=== PATIENT | female | born 1970 | race Caucasian/White ===

== ENCOUNTER → 2017-01-14 | Outpatient (CLI) | payer BC ==
--- NOTE | 2017-01-21 18:23 | ECHO ---
EXAM DATE: 01/14/17 PATIENT'S AGE: 46 Height: 67.0 in. Weight: 142.0 lbs. BSA: 1.75 m2 Heart Rate: 60 INDICATIONS: Palpitations STUDY INFORMATION: Complete study received on 01/14/2017. CELL LINER COMMENTS: LV systolic function deferred to physician observation. SUMMARY: 1. Left ventricular ejection fraction, by visual estimation, is 60% to 65%. 2. Normal pattern of LV diastolic filling. 3. Normal right ventricular systolic function. 4. Aortic valve is structurally normal and tricuspid. 5. Trace aortic valve regurgitation. 6. Trace mitral valve regurgitation. 7. Trace tricuspid valve regurgitation. 8. No regional wall motion abnormalities. PHYSICIAN INTERPRETATION: LEFT VENTRICLE: The left ventricular internal cavity size is normal. LV septal wall thickness is normal. LV posterior wall thickness is normal. LV systolic function is normal. Left ventricular ejection fraction by visual estimation is 60% to 65%. LEFT VENTRICULAR DIASTOLOGY: Spectral Doppler shows normal pattern of LV diastolic filling. LEFT VENTRICULAR REGIONAL WALL MOTION: No regional wall motion abnormalities. RIGHT VENTRICLE: The right ventricular size is normal. Right ventricular systolic function is normal. LEFT ATRIUM: The left atrium is normal in size. RIGHT ATRIUM: The right atrium is normal in size. AORTIC VALVE: The aortic valve is structurally normal and tricuspid. Trace aortic valve regurgitation is visualized. No aortic valve stenosis is visualized with a measured peak systolic flow velocity of 1.30 m/s. MITRAL VALVE: The mitral valve is normal in structure. Mitral leaflet mobility is normal. Trace mitral valve regurgitation is visualized. TRICUSPID VALVE: The tricuspid valve is normal in structure. Trace tricuspid valve regurgitation is visualized. PULMONIC VALVE: The pulmonic valve is probably normal in structure. Trace pulmonic valve regurgitant is visualized. PULMONARY ARTERY: The pulmonary artery is not well seen. AORTA: The aortic root and ascending aorta is/are normal. VENOUS: The inferior vena cava is normal sized. SHUNTS: Interatrial septum appears intact with no evidence of intracardiac shunting by spectral or color Doppler. PERICARDIUM: There is no evidence of pericardial effusion. ----- 2D and M-MODE Measurements (normal ranges within parentheses): RIGHT VENTRICLE: NORMAL RVd (2D): 2.10 cm LEFT VENTRICLE NORMAL LV d (2D): 4.0 cm (3.8-5.2) LV s (2D): 2.9 cm (2.2-3.5) IVSd (2D): 0.8 cm (0.6-0.9) LVPWd (2D): 0.8 cm (0.6-0.9) MV EPSS: 3.0 mm (</= 5) LV Mass Index (2D): 53 g/m2 (43-95) Relative Wall Thickness: 0.40 </= 0.42 AORTA/LEFT ATRIUM: NORMAL Aortic Root/Sinus (2D): 2.64 cm Left Atrium (2D): 3.39 cm (2.7-4.0) LV DIASTOLIC FUNCTION: MV E Vmax: 87.9 cm/s MV A Vmax: 59.4 cm/s MV E/A: 1.5 Medial MV e': 10.1 cm/s Medial MV E/e': 8.7 Lateral MV e': 12.0 cm/s Lateral MV E/e': 7.3 MV Dec Time: 225.0 msec Average E/e': 8.01 AORTIC VALVE: AoV Vmax: 1.30 m/s AoV Peak P.8 mmHg LVOT Vmax: 1.00 m/s LVOT Peak P.0 mmHg TRICUSPID VALVE AND PA/RV SYSTOLIC PRESSURE: TR Vmax: 2.14 m/s TR pk grad: 18 mmHg PULMONIC VALVE: PV Vmax: 0.66 m/s PV Max P.7 mmHg Electronically signed by: Tigre Srinivasan MD Signature Date/Time: 01/14/2017 at [address] [facility] -- SHWETA Alvarez [phone] - FAX: [phone] Report Signed by Proxy SHANELLE
== END ==
LOC: MW.US 12:45
PROVIDERS: ATTEND Internal Medicine
DX: R00.2 Palpitations (principal); I08.3 Combined rheumatic disorders of mitral, aortic and tricuspid valves
CPT/HCPCS: 93306

== ENCOUNTER → 2017-01-21 | Outpatient (CLI) | payer BC | LOC: MW.RT 10:37 | DX: R00.2 Palpitations (principal) | CPT/HCPCS: 93270 ==

== ENCOUNTER 2021-10-18 04:12 | Emergency (ER) | payer BC ==
--- NOTE | 2021-10-18 04:23 | EDM.PDOC ---
ED HPI GENERAL MEDICAL PROBLEM - General Stated Complaint: SOB COVID POS Time Seen by Provider: 10/18/21 04:14 - History of Present Illness INITIAL COMMENTS - FREE TEXT/NARRATIVE: History of present illness: [] Patient feels short of breath. She has a cough. She has diffuse body aches. She has fatigue. She has no appetite. Tonight she starting to be nauseated. She feels extremely weak tonight. Symptom onset was 10 October 2021 after she got a booster tetanus shot. She had muscle aches fever and fatigue. She is gradually gotten worse since. On 13 October 2021 she had a test was diagnosed with COVID-19. Other than COVID-19 she has no other risk for thromboembolic disease. She is not recently immobilized or operated on has no recent casting no recent long trips. She did have a varicose vein after multiple pregnancies but no DVT and no family history of DVT. Review of systems: As per history of present illness and below otherwise all systems reviewed and negative. Past medical history: As per history of present illness and as reviewed below otherwise noncontributory. Surgical history: As per history of present illness and as reviewed below otherwise noncontributory. Social history: No reported history of drug or alcohol abuse. Family history: As per history of present illness and as reviewed below otherwise noncontributory. Physical exam: Constitutional - well developed, well-nourished and in no acute distress HEENT - normocephalic, no evidence of trauma - external nose and mouth normal - no mass in neck and no JVD - mucosae moist EYES - full EOM, PERRL, no icterus - no evidence of inflammation, injection, or drainage Respiratory - no respiratory distress, equal bilateral expansion, lungs scattered light crackles in both bases slightly diminished in the apices. Cardiovascular - Regular Rhythm with S1 and S2 appreciated and no murmur, gallop or rub. GI - abdomen soft without distension or organomegaly - normal bowel sounds - no guard or rebound Musculoskeletal no gross deformity of long bones or joints - no tenderness, swelling or edema Neurologic - Alert and oriented times four - CN II-XII grossly intact - motor sensory and coordination symmetrically normal Psychiatric - appropriate mood and affect with normal thought content Hematologic - No petechiae or purpura - mucosa appropriate color and sclera not pale - normal nail bed color and refill Integument - no rash or evidence of trauma - normal turgor Diagnostics: [] Therapeutics: [] Impression: [] Plan: [] Definitive disposition and diagnosis as appropriate pending reevaluation and review of above. Generalized Pain Score (Numeric/FACES): 6 - Related Data Allergies Allergy/AdvReac Type Severity Reaction Status Date / Time No Known Allergies Allergy Verified 10/18/21 04:35 Home Meds: Home Meds . [No Known Home Meds] 10/18/21 [History] ED ROS GENERAL - Review of Systems Review Of Systems: Comprehensive ROS is negative, except as noted in HPI. ED EXAM, GENERAL - Physical Exam Exam: See Below Free Text/Narrative:: My physical exam is in the HPI #1 Interpretation EKG Interpretation Comments: EKG shows sinus rhythm heart rate 86 CA interval 144. QT duration is 438 and axis of 64. QRS normal ST and T are normal. No prior for comparison. Impression normal Course - Vital Signs Last Recorded V/S: Last Vital Signs Temp 36.7 C 10/18/21 06:00 Pulse 87 10/18/21 06:00 Resp 20 10/18/21 06:00 BP 135/81 10/18/21 06:00 Pulse Ox 96 10/18/21 06:00 - Orders/Labs/Meds Orders: Active Orders 24 hr Category Date Time Status Sodium Chloride 0.9% [Saline Flush] Med 10/18/21 04:37 Active 10 ml FLUSH ASDIRECTED PRN Sodium Chloride 0.9% [Saline Flush] Med 10/18/21 04:37 Active 2.5 ml FLUSH ASDIRECTED PRN Saline Lock Insert [OM.PC] Stat Oth 10/18/21 04:37 Ordered Medication Orders Sodium Chloride (Sodium Chloride 0.9% 10 Ml Syringe) 10 ml FLUSH ASDIRECTED PRN PRN Reason: Keep Vein Open Last Admin: 10/18/21 04:54 Dose: 10 ml Documented by: MEREDITH Sodium Chloride (Sodium Chloride 0.9% 2.5 Ml Syringe) 2.5 ml FLUSH ASDIRECTED PRN PRN Reason: Keep Vein Open Last Admin: 10/18/21 04:54 Dose: 2.5 ml Documented by: MEREDITH Labs: Laboratory Tests 10/18/21 10/18/21 10/18/21 Range/Units 04:25 04:25 04:25 WBC 2.69 L (4.0-11.0) K/uL RBC 4.82 (4.30-5.90) M/uL Hgb 13.5 (12.0-16.0) g/dL Hct 40.0 (36.0-46.0) % MCV 83.0 (80.0-98.0) fL MCH 28.0 (27.0-32.0) pg MCHC 33.8 (31.0-37.0) g/dL RDW Std Deviation 40.5 (28.0-62.0) fl RDW Coeff of Tom 13 (11.0-15.0) % Plt Count 81 L (150-400) K/uL MPV 10.30 (7.40-12.00) fL Neut % (Auto) 64.7 (48.0-80.0) % Lymph % (Auto) 28.6 (16.0-40.0) % [place] % (Auto) 6.3 (0.0-15.0) % Eos % (Auto) 0.0 (0.0-7.0) % Baso % (Auto) 0.4 (0.0-1.5) % Neut # (Auto) 1.7 (1.4-5.7) K/uL Lymph # (Auto) 0.8 (0.6-2.4) K/uL [place] # (Auto) 0.2 (0.0-0.8) K/uL Eos # (Auto) 0.0 (0.0-0.7) K/uL Baso # (Auto) 0.0 (0.0-0.1) K/uL Nucleated RBC % 0.0 /100WBC Nucleated RBCs # 0 K/uL D-Dimer, Quantitative 0.81 H (0.0-0.50) mg/L FEU Sodium 136 (136-145) mmol/L Potassium 3.8 (3.5-5.1) mmol/L Chloride 101 (98-107) mmol/L Carbon Dioxide 27.5 (21.0-32.0) mmol/L BUN 10 (7.0-18.0) mg/dL Creatinine 0.9 (0.6-1.0) mg/dL Est Cr Clr Drug Dosing 72.72 mL/min Estimated GFR (MDRD) > 60.0 ml/min Glucose 122 H (74-106) mg/dL Calcium 8.7 (8.5-10.1) mg/dL Total Bilirubin 0.3 (0.2-1.0) mg/dL AST 68 H (15-37) IU/L ALT 59 (14-63) IU/L Alkaline Phosphatase 60 (46-116) U/L Troponin I < 0.050 (0.000-0.056) ng/mL Total Protein 7.6 (6.4-8.2) g/dL Albumin 3.2 L (3.4-5.0) g/dL Globulin 4.4 H (2.6-4.0) g/dL Albumin/Globulin Ratio 0.7 L (0.9-1.6) HCG, Qual (NEG) 10/18/21 Range/Units 04:25 WBC (4.0-11.0) K/uL RBC (4.30-5.90) M/uL Hgb (12.0-16.0) g/dL Hct (36.0-46.0) % MCV (80.0-98.0) fL MCH (27.0-32.0) pg MCHC (31.0-37.0) g/dL RDW Std Deviation (28.0-62.0) fl RDW Coeff of Tom (11.0-15.0) % Plt Count (150-400) K/uL MPV (7.40-12.00) fL Neut % (Auto) (48.0-80.0) % Lymph % (Auto) (16.0-40.0) % [place] % (Auto) (0.0-15.0) % Eos % (Auto) (0.0-7.0) % Baso % (Auto) (0.0-1.5) % Neut # (Auto) (1.4-5.7) K/uL Lymph # (Auto) (0.6-2.4) K/uL [place] # (Auto) (0.0-0.8) K/uL Eos # (Auto) (0.0-0.7) K/uL Baso # (Auto) (0.0-0.1) K/uL Nucleated RBC % /100WBC Nucleated RBCs # K/uL D-Dimer, Quantitative (0.0-0.50) mg/L FEU Sodium (136-145) mmol/L Potassium (3.5-5.1) mmol/L Chloride (98-107) mmol/L Carbon Dioxide (21.0-32.0) mmol/L BUN (7.0-18.0) mg/dL Creatinine (0.6-1.0) mg/dL Est Cr Clr Drug Dosing mL/min Estimated GFR (MDRD) ml/min Glucose (74-106) mg/dL Calcium (8.5-10.1) mg/dL Total Bilirubin (0.2-1.0) mg/dL AST (15-37) IU/L ALT (14-63) IU/L Alkaline Phosphatase (46-116) U/L Troponin I (0.000-0.056) ng/mL Total Protein (6.4-8.2) g/dL Albumin (3.4-5.0) g/dL Globulin (2.6-4.0) g/dL Albumin/Globulin Ratio (0.9-1.6) HCG, Qual NEGATIVE (NEG) Meds: Medications Generic Name Dose Route Start Last Admin Trade Name Freq PRN Reason Stop Dose Admin Sodium Chloride 10 ml 10/18/21 04:37 10/18/21 04:54 Sodium Chloride 0.9% 10 Ml Syringe FLUSH 10 ml ASDIRECTED PRN Administration Keep Vein Open Sodium Chloride 2.5 ml 10/18/21 04:37 10/18/21 04:54 Sodium Chloride 0.9% 2.5 Ml Syringe FLUSH 2.5 ml ASDIRECTED PRN Administration Keep Vein Open Discontinued Medications Generic Name Dose Route Start Last Admin Trade Name Freq PRN Reason Stop Dose Admin Sodium Chloride 1,000 mls @ 1,000 mls/hr 10/18/21 04:38 10/18/21 04:52 Normal Saline IV 10/18/21 05:37 1,000 mls/hr .Bolus ONE Administration Iopamidol 75 ml 10/18/21 05:54 10/18/21 05:54 Iopamidol 755 Mg/Ml 500 Ml Multipack Bottle IVPUSH 10/18/21 05:55 75 ml ONETIME STA Administration Ondansetron HCl 4 mg 10/18/21 04:37 10/18/21 04:52 Ondansetron 4 Mg/2 Ml Sdv IVPUSH 10/18/21 04:38 4 mg ONETIME ONE Administration Departure - Departure Time of Disposition: 06:46 Disposition: Home, Self-Care 01 Condition: Good Clinical Impression: Dyspnea, Pneumonia due to COVID-19 virus - Discharge Information Instructions: COVID-19 Frequently Asked Questions, Shortness of Breath, Adult, [id number], COVID-19 Vaccine Information, COVID-19: Quarantine vs. Isolation - [facility] (11/09/2020), COVID-19: What to Do If You Are Sick- [facility] (02/07/2021) Referrals: Stephen Fulton MD [Primary Care Provider] - Additional Instructions: [facility] - Primary Care [address] [place] [phone] [address] The following information is given to patients seen in the emergency department who are being discharged to home. This information is to outline your options for follow-up care. We provide all patients seen in our emergency department with a follow-up referral. The need for follow-up, as well as the timing and circumstances, are variable depending upon the specifics of your emergency department visit. If you don't have a primary care physician on staff, we will provide you with a referral. We always advise you to contact your personal physician following an emergency department visit to inform them of the circumstance of the visit and for follow-up with them and/or the need for any referrals to a consulting specialist. The emergency department will also refer you to a specialist when appropriate. This referral assures that you have the opportunity for follow-up care with a specialist. All of these measure are taken in an effort to provide you with optimal care, which includes your follow-up. Under all circumstances we always encourage you to contact your private physician who remains a resource for coordinating your care. When calling for follow-up care, please make the office aware that this follow-up is from your recent emergency room visit. If for any reason you are refused follow-up, please contact the [facility] Emergency Department at and asked to speak to the emergency department charge nurse. Sepsis Event Note (ED) - Focused Exam Vital Signs: Vital Signs Temp Pulse Resp BP Pulse Ox 10/18/21 06:00 36.7 C 87 20 135/81 96 10/18/21 05:00 36.6 C 85 20 131/87 97 10/18/21 04:15 37.2 C 94 20 135/81 97 - My Orders Last 24 Hours: My Active Orders 10/18/21 04:37 Sodium Chloride 0.9% [Saline Flush] 10 ml FLUSH ASDIRECTED PRN Sodium Chloride 0.9% [Saline Flush] 2.5 ml FLUSH ASDIRECTED PRN Saline Lock Insert [OM.PC] Stat - Assessment/Plan Last 24 Hours: My Active Orders 10/18/21 04:37 Sodium Chloride 0.9% [Saline Flush] 10 ml FLUSH ASDIRECTED PRN Sodium Chloride 0.9% [Saline Flush] 2.5 ml FLUSH ASDIRECTED PRN Saline Lock Insert [OM.PC] Stat
[2021-10-18] MEDS ORDERED: Ondansetron 4 MG/2 ML SDV IVPUSH ONE (04:37)
[2021-10-18] MEDS ORDERED: Sodium Chloride 0.9% 10 ML Syringe FLUSH PRN (04:37)
[2021-10-18] MEDS ORDERED: Sodium Chloride 0.9% 2.5 ML Syringe FLUSH PRN (04:37)
[2021-10-18] MEDS ORDERED: Sodium Chloride 0.9% 1,000 ML IV ONE (04:38)
[2021-10-18 05:09] LABS: BLOOD UREA NITROGEN,BUN 10 mg/dL (7.0-18.0); CARBON DIOXIDE,CO2 27.5 mmol/L (21.0-32.0); CHLORIDE,CL 101 mmol/L (98-107); GLUCOSE RANDOM 122 mg/dL (74-106); POTASSIUM,K 3.8 mmol/L (3.5-5.1); SODIUM,NA 136 mmol/L (136-145)
--- NOTE | 2021-10-18 05:10 | CR ---
INDICATION: Dyspnea TECHNIQUE: Chest radiograph 1 view COMPARISON: None FINDINGS: Mediastinum: The mediastinum is normal in appearance. The heart silhouette is normal in size and morphology. Lung: Minimal wispy airspace opacities are present lung bases. No sign of pleural effusion seen. No pneumothorax is identified. Bone and Soft tissue: Unremarkable for age. IMPRESSION: 1. Minimal wispy airspace opacities are present lung bases. These findings can be seen with atelectasis and/or atypical pneumonia. Dictated by Jass Mejia MD @ 10/18/2021 5:09:25 AM Dictated by: Jass Mejia MD @ 10/18/2021 05:09:30 (Electronically Signed)
[2021-10-18] MEDS ORDERED: Iopamidol 755 MG/ML 500 ML Multipack Bottle IVPUSH STA (05:54)
--- NOTE | 2021-10-18 06:42 | CT ---
INDICATION: Dyspnea and elevated D-dimer TECHNIQUE: CT chest with i.v. contrast using pulmonary angiographic technique. Coronal and sagittal reformats were obtained. CONTRAST: 75 mL Isovue 370 COMPARISON: None FINDINGS: Cardiovascular: The pulmonary arteries are unremarkable in enhancement with no evidence of acute pulmonary embolism. The heart has an unremarkable appearance and size. No sign of aneurysm in the thoracic aorta. Mediastinum: No mass or adenopathy seen. Lung: There are patchy areas of peripheral ground-glass infiltrates present bilaterally. Pleura and pericardium: No sign of pleural effusion seen. No significant pericardial effusion is present. Chest wall and axilla: Multiple bilateral axillary lymph nodes are present measuring up to 6 mm. Bone: Unremarkable for age. Upper abdomen: There is an exophytic cyst in the upper pole of the left kidney measuring 1.7 cm. IMPRESSIONS: 1. No CT evidence of acute pulmonary emboli seen. 2. There are patchy areas of peripheral ground-glass infiltrates present bilaterally. Clinical correlation recommended to exclude COVID-19 infection. Dictated by Jass Mejia MD @ 10/18/2021 6:41:14 AM Please note that all CT scans at this facility use dose modulation, iterative reconstruction, and/or weight-based dosing when appropriate to reduce radiation dose to as low as reasonably achievable. Dictated by: Jass Mejia MD @ 10/18/2021 06:41:19 (Electronically Signed)
== END 2021-10-18 06:57 | disposition home or self-care (01) ==
LOC: MW.ED 04:12
DX: U07.1 COVID-19 (principal); J12.82 Pneumonia due to coronavirus disease 2019
CPT/HCPCS: 36415; 71045; 71275; 80053; 84484; 84703; 85025; 85379; 93005; 96374; 99285; J2405; J7030; Q9967

== ENCOUNTER 2023-01-30 09:16 | Day surgery (SDC) | payer BC ==
[~2023-01-30 09:16] MED LIST: Lactated Ringers 1,000 ML IV SCH; Sodium Chloride 0.9% 10 ML Syringe FLUSH PRN; Sodium Chloride 0.9% 2.5 ML Syringe FLUSH PRN; Sodium Chloride 0.9% 20 ML SDV IV PRN
[2023-01-30] MEDS ORDERED: Propofol 200 MG/20 ML SDV ONE ×2 (10:25→11:57)
[2023-01-30] MEDS ORDERED: Lidocaine 2% 5 ML SDV ONE (12:09)
== END 2023-01-30 12:52 | disposition home or self-care (01) ==
LOC: MW.SDS 09:16
PROVIDERS: ATTEND Surgery
DX: Z12.11 Encounter for screening for malignant neoplasm of colon (principal); D12.3 Benign neoplasm of transverse colon
CPT/HCPCS: 45380; 81025; J2704; J7120; 00811; J3490